=== PATIENT | female | born 1980 | race Caucasian/White ===

== ENCOUNTER 2017-01-13 19:42 | Emergency (ER) | payer OTHER ==
[2017-01-13 19:58] VITALS: BP 135/65; PULSE 73; TEMP 98.2; BMI 36.6
[2017-01-13 20:11] LABS: URINE APPEARANCE CLEAR; URINE BILIRUBIN NEGATIVE (NEGATIVE); URINE BLOOD NEGATIVE (NEGATIVE); URINE COLOR LTYELLOW; URINE GLUCOSE (UA) NEGATIVE (NEGATIVE); URINE KETONE NEGATIVE (NEGATIVE); URINE LEUK ESTERASE NEGATIVE (NEGATIVE); URINE NITRITE NEGATIVE (NEGATIVE); URINE UROBILINOGEN NEGATIVE E.U./dl (0.2-1.0)
[2017-01-13 20:17] LABS: URINE PROTEIN 1+ (NEGATIVE)
[2017-01-13 20:20] LABS: URINE MUCUS RARE; URINE RBC <1 /hpf (0-3); URINE WBC 1 /hpf (3-5)
--- NOTE | 2017-01-13 20:32 | PDOC ---
History of Present Illness <Saurabh Stanton - Last Filed: 01/14/17 01:31> - General History Source: Patient Exam Limitations: No Limitations - History of Present Illness Initial Comments: 01/14/17 01:34 The patient is a 36 year old female with no significant past medical history who presents to the ED with 3 days of fever and sore throat. Patient reports tmax last night of 102. States she developed sore throat 3 days ago and difficulty swallowing secondary to the pain. Patient reports right upper quadrant pain radiating the back with associated nausea for the past week. No vomiting or diarrhea. She also has complaints of headache, suprapubic pain and urgency. No dysuria, hematuria, or frequency. The patient denies chills, cough, SOB, chest pain, and palpitations. Allergies: NKDA Social History: No alcohol, tobacco, or drug use reported. Past Surgical History: None reported PCP: Dr. Samantha Christopher <Noelle Steinberg - Last Filed: 01/14/17 01:35> - General Chief Complaint: Pain, Acute Stated Complaint: ABDOMINAL PAIN Past History - Past Medical History Asthma: No Cancer: No Cardiac Disorders: No Diabetes: Yes (GESTATIONAL DIABETIC - INSULIN) HTN: No Suicide Attempt (Hx): No Seizures: No Thyroid Disease: No - Reproductive History (#): 4 Para: 3 Cervical CA: No Dysfunctional Uterine Bleeding: No Ectopic : No Endometrial CA: No Polycystic Ovaries: No Therapeutic (s) & number: No Tubal Ligation: No Spontaneous : 0 - Immunization History Immunization Up to Date: Yes - Psycho/Social/Smoking Cessation Hx Anxiety: No Suicidal Ideation: No Smoking Status: No Smoking History: Never smoked Have you smoked in the past 12 months: No Number of Cigarettes Smoked Daily: 0 Hx Alcohol Use: No Drug/Substance Use Hx: No Substance Use Type: None Hx Substance Use Treatment: No <Saurabh Stanton - Last Filed: 01/14/17 01:31> <Noelle Steinberg - Last Filed: 01/14/17 01:35> - Past Medical History Allergies/Adverse Reactions: Allergies Allergy/AdvReac Type Severity Reaction Status Date / Time No Known Allergies Allergy Verified 01/13/17 19:53 Home Medications: Ambulatory Orders Ibuprofen 800 mg PO TID PRN #30 tablet 01/14/17 Lidocaine 2% Viscous Oral [Xylocaine 2% Viscous Oral -] 20 ml PO TID PRN #1 ud 01/14/17 Penicillin V Potassium [Pen Vee K -] 250 mg PO QID #28 tablet 01/14/17 Review of Systems - Review of Systems Able to Perform ROS?: Yes Comments:: 01/14/17 01:34 GENERAL/CONSTITUTIONAL: +fever No chills. No weakness. HEAD, EYES, EARS, NOSE AND THROAT: +sore throat, difficulty swallowing No change in vision. No ear pain or discharge. CARDIOVASCULAR: No chest pain or shortness of breath. RESPIRATORY: No cough, wheezing, or hemoptysis. GASTROINTESTINAL: +right upper quadrant pain radiating to the back, nausea, suprapibic pain No vomiting, diarrhea or constipation. GENITOURINARY: +urgency No dysuria, frequency, or change in urination. MUSCULOSKELETAL: No joint or muscle swelling or pain. SKIN: No rash NEUROLOGIC: +headache No vertigo, loss of consciousness, or change in strength/ sensation. ENDOCRINE: No increased thirst. No abnormal weight change. HEMATOLOGIC/LYMPHATIC: No anemia, easy bleeding, or history of blood clots. ALLERGIC/IMMUNOLOGIC: No hives or skin allergy. <Noelle Steinberg - Last Filed: 01/14/17 01:35> *Physical Exam - Vital Signs Last Vital Signs Temp Pulse Resp BP Pulse Ox 98.2 F 73 18 135/65 100 01/13/17 19:57 01/13/17 19:57 01/13/17 19:57 01/13/17 19:57 01/13/17 19:57 <Saurabh Stanton - Last Filed: 01/14/17 01:31> - Vital Signs Last Vital Signs Temp Pulse Resp BP Pulse Ox 98.2 F 73 18 135/65 100 01/13/17 19:57 01/13/17 19:57 01/13/17 19:57 01/13/17 19:57 01/13/17 19:57 - Physical Exam Comments: 01/14/17 01:35 GENERAL: Awake, alert, and fully oriented, in no acute distress HEAD: No signs of trauma EYES: PERRLA, EOMI, sclera anicteric, conjunctiva clear ENT: Auricles normal inspection, hearing grossly normal, nares patent. Oropharynx is erythematous with exudates bilaterally. Moist mucosa NECK: Normal ROM, supple, painful lymphadenopathy, JVD, or masses LUNGS: Breath sounds equal, clear to auscultation bilaterally. No wheezes, and no crackles HEART: Regular rate and rhythm, normal S1 and S2, no murmurs, rubs or gallops ABDOMEN: Soft, mild diffuse tenderness, normoactive bowel sounds. No guarding, no rebound. No masses EXTREMITIES: Normal range of motion, no edema. No clubbing or cyanosis. No cords, erythema, or tenderness NEUROLOGICAL: Cranial nerves II through XII grossly intact. Normal speech, normal gait SKIN: Warm, Dry, normal turgor, no rashes or lesions noted. <Noelle Steinberg - Last Filed: 01/14/17 01:35> ED Treatment Course - LABORATORY CBC & Chemistry Diagram: 01/13/17 20:23 01/13/17 20:23 - ADDITIONAL ORDERS Additional order review: Laboratory Results 01/13/17 19:58 Urine Color Ltyellow Urine Appearance Clear Urine pH 6.0 Ur Specific [place] 1.010 Urine Protein 1+ H Urine Glucose (UA) Negative Urine Ketones Negative Urine Blood Negative Urine Nitrite Negative Urine Bilirubin Negative Urine Urobilinogen Negative Ur Leukocyte Esterase Negative Urine RBC <1 Urine WBC 1 Ur Epithelial Cells Few Urine Mucus Rare Urine HCG, Qual Negative <Saurabh Stanton - Last Filed: 01/14/17 01:31> - LABORATORY CBC & Chemistry Diagram: 01/13/17 20:23 01/13/17 20:23 - ADDITIONAL ORDERS Additional order review: Laboratory Results 01/13/17 01/13/17 20:23 19:58 Sodium 137 Potassium 4.1 Chloride 102 Carbon Dioxide 26 Anion Gap 9 BUN 8 D Creatinine 0.6 D Creat Clearance w eGFR > 60 Random Glucose 71 L Calcium 8.8 Total Bilirubin 0.5 D AST 63 H D ALT 90 H D Alkaline Phosphatase 189 H D Total Protein 8.0 Albumin 4.0 D Lipase 150 Urine Color Ltyellow Urine Appearance Clear Urine pH 6.0 Ur Specific [place] 1.010 Urine Protein 1+ H Urine Glucose (UA) Negative Urine Ketones Negative Urine Blood Negative Urine Nitrite Negative Urine Bilirubin Negative Urine Urobilinogen Negative Ur Leukocyte Esterase Negative Urine RBC <1 Urine WBC 1 Ur Epithelial Cells Few Urine Mucus Rare Urine HCG, Qual Negative 01/13/17 22:42 Influenza Types A,B Antigen (VERENA) - Final Nasopharyngeal Swab - Final 01/13/17 22:42 Group A Strep Rapid Antigen - Final Throat 01/13/17 20:23 RBC 4.03 MCV 91.8 MCHC 33.4 RDW 13.6 MPV 9.6 Neutrophils % 75.1 Lymphocytes % 15.2 D Monocytes % 7.2 Eosinophils % 2.1 Basophils % 0.4 - Medications Given in the ED: ED Medications Discontinued Medications Generic Name Dose Route Start Last Admin Trade Name Fregiuliana PRN Reason Stop Dose Admin Acetaminophen 650 mg 01/13/17 21:25 01/13/17 21:30 Tylenol - PO 01/13/17 21:26 650 mg ONCE ONE Administration Ketorolac Tromethamine 30 mg 01/13/17 23:47 01/13/17 23:52 Toradol Injection - IVPUSH 01/13/17 23:48 30 mg ONCE ONE Administration Lidocaine HCl 20 ml 01/13/17 23:47 01/13/17 23:52 Xylocaine 2% Viscous Oral - MM 01/13/17 23:48 20 ml ONCE ONE Administration Sodium Chloride 1,000 ml 01/13/17 21:25 01/13/17 21:29 Normal Saline - IV 01/13/17 21:26 1,000 ml ONCE ONE Administration <Noelle Steinberg - Last Filed: 01/14/17 01:35> Medical Decision Making - Medical Decision Making 01/14/17 00:34 36yo f with ongoing symptoms suggestive of viral syndrome, however, PE demonstrates mild RUQ abdominal pain and exudates on the tonsils with painful lymphadenopathy. The patient qualifies for imaging of the abd/pelvis; RUQ abdominal is negative and reassuring. She is offered andf refused CT abd/ pelvis. I have discussed this with her and she feels she would rather take a watch and wait approach. This is reasonable at this time. There is a mild elevation of the LFT's which may suggest EBV/infectious mononucleosis. Will send monospot test. She has a negative influenza screen; rapid strep test pending. Will give antibiotics, fluids, encourage follow up closely within the next 24 hours for reevaluation and aggressive hydration and nutrition as tolerated. She will also bne encouraged to refrain fromj activity that would potentially injure the spleen/liver. 01/14/17 00:41 04/21/17 01:12 <Saurabh Stanton - Last Filed: 01/14/17 01:31> *DC/Admit/Observation/Transfer - Discharge Dispostion Admit: No Decision to Admit order Date/Time: 01/14/17 01:08 - Attestations Physician Attestion: 01/14/17 01:10 I, Dr. Saurabh Stanton MD, attest that this document has been prepared under my direction and personally reviewed by me in its entirety. I further attest, that it accurately reflects all work, treatment, procedures and medical decision -making performed by me. <Saurabh Stanton - Last Filed: 01/14/17 01:31> - Attestations Scribe Attestion: 01/14/17 01:35 Documentation prepared by Noelle Steinberg, acting as medical records supervisor for Saurabh Stanton MD, MD <Noelle Steinberg - Last Filed: 01/14/17 01:35> Diagnosis at time of Disposition: Fever and chills, Sore throat Pharyngitis Qualifiers: Pharyngitis/tonsillitis etiology: other specified organisms Qualified Code(s): J02.8 - Acute pharyngitis due to other specified organisms - Discharge Dispostion Disposition: HOME Condition at time of disposition: Good - Prescriptions Prescriptions: Ibuprofen 800 mg PO TID PRN #30 tablet PRN Reason: pain, fever Penicillin V Potassium [Pen Vee K -] 250 mg PO QID #28 tablet Lidocaine 2% Viscous Oral [Xylocaine 2% Viscous Oral -] 20 ml PO TID PRN #1 ud PRN Reason: Pain - Referrals Referrals: Samantha Christopher MD [Primary Care Provider] - - Patient Instructions Printed Discharge Instructions: Mononucleosis, Sore Throat, DI for Abdominal Pain-Adult Additional Instructions: Please follow up with your PMD within the next 48 hours and if there is any change otherwise in symptoms, please return immediately to the ED. At this time it is not entirely clear as to the specific cause of your symptoms; it is possibly related to strep throat or infectious mononucleosis. Please aggressively hydrate, nutrition as tolerated and plenty of rest; please avoid any contact sports or activity.
[2017-01-13] MEDS ORDERED: SODIUM CHLORIDE 0.9% 500 ML INFUS.BAG IV ONE (21:25)
[2017-01-13] MEDS ORDERED: ACETAMINOPHEN 325 MG TABLET (FP) PO ONE (21:25)
[2017-01-13 21:43] LABS: BASOPHIL 0.4 % (0-2.0); EOSINOPHIL 2.1 % (0-4.5); MCH 30.7 pg (25.7-33.7); MCHC 33.4 g/dl (32.0-36.0); MEAN CELL VOLUME 91.8 fl (80-96); MEAN PLT VOLUME 9.6 fl (7.5-11.1); NEUTROPHILS 75.1 % (42.8-82.8); PLATELET COUNT 276 K/MM3 (134-434); RDW 13.6 % (11.6-15.6); WHITE BLOOD COUNT 14.2 K/mm3 (4.0-10.0)
[2017-01-13] MEDS ORDERED: ACETAMINOPHEN 325 MG TABLET (FP) ONE ×2 (22:02→22:08)
[2017-01-13 22:35] LABS: ANION GAP 9 (8-16); BILIRUBIN,TOTAL 0.5 mg/dL (0.2-1.0); CALCIUM 8.8 mg/dL (8.5-10.1); CO2 26 mmol/L (21-32); CREATININE 0.6 mg/dL (0.55-1.02); GLUCOSE,RANDOM 71 mg/dL (74-106); SGOT/AST 63 U/L (15-37); SGPT/ALT 90 U/L (12-78)
[2017-01-13 22:36] LABS: ALK PHOS 189 U/L (45-117)
[2017-01-13] MEDS ORDERED: LIDOCAINE VISCOUS 2% ORAL/TOP 20 ML UNIT-DOSE CUP MM ONE (23:47)
[2017-01-13] MEDS ORDERED: KETOROLAC TROMETHAMINE 30 MG/1 ML VIAL IVPUSH ONE (23:47)
[2017-01-13] MEDS ORDERED: KETOROLAC TROMETHAMINE 30 MG/1 ML VIAL ONE (23:55)
[2017-01-14] MEDS ORDERED: PENICILLIN V POTASSIUM 500 MG TABLET PO ONE (01:31)
== END 2017-01-14 01:27 | disposition home or self-care (01) ==
LOC: JER 19:42 → SUPCPDRO 19:42 → JER 01-14 01:27
PROC: 3E0333Z Introduction of Anti-inflammatory into Peripheral Vein, Percutaneous Approach (ICD-10-PCS; principal; 2017-01-13)
DX: J02.9 Acute pharyngitis, unspecified (principal); R51 Headache
CPT/HCPCS: 36415; 71020-TC; 76705-TC; 80053; 81003; 81015; 83690; 84703; 85025; 86308; 87040; 87070; 87430; 87804; 99284-25

== ENCOUNTER 2018-11-06 20:54 | Emergency (ER) | payer OTHER ==
[2018-11-06 21:05] VITALS: BP 139/81; PULSE 83; TEMP 100; BMI 41.5
[2018-11-06] MEDS ORDERED: METOCLOPRAMIDE HCL INJECTION 10 MG/2 ML VIAL IVPB ONE (21:05)
[2018-11-06] MEDS ORDERED: ACETAMINOPHEN 325 MG TABLET (FP) PO ONE (21:05)
[2018-11-06] MEDS ORDERED: SODIUM CHLORIDE 1,000 ML IV STA (21:05)
--- NOTE | 2018-11-06 21:05 | PDOC ---
Rapid Medical Evaluation Medical Evaluation: Allergies Allergy/AdvReac Type Severity Reaction Status Date / Time No Known Allergies Allergy Verified 01/13/17 19:53 I have performed a brief in-person evaluation of this patient. The patient presents with a chief complaint of: R sided KENDRICK x 2 weeks also with occasional emesis ; took Advil without relief; KENDRICK is constant in nature, noted some blurred vision last week but resolved now Pertinent physical exam findings: In NAD, no focal deficits I have ordered the following: IVF, Tylenol, Reglan, UCG The patient will proceed to the ED for further evaluation. 11/06/18 21:01
[2018-11-07] MEDS ORDERED: METOCLOPRAMIDE HCL INJECTION 10 MG/2 ML VIAL ONE (00:23)
[2018-11-07] MEDS ORDERED: ACETAMINOPHEN 325 MG TABLET (FP) ONE ×2 (00:23→02:12)
--- NOTE | 2018-11-07 01:33 | PDOC ---
*Physical Exam - Vital Signs Last Vital Signs Temp Pulse Resp BP Pulse Ox 100 F H 83 18 139/81 100 11/06/18 21:02 11/06/18 21:02 11/06/18 21:02 11/06/18 21:02 11/06/18 21:02 ED Treatment Course - Medications Given in the ED: ED Medications Discontinued Medications Generic Name Dose Route Start Last Admin Trade Name Kenyon PRN Reason Stop Dose Admin Acetaminophen 975 mg 11/06/18 21:05 11/07/18 01:31 Tylenol - PO 11/06/18 21:06 975 mg ONCE ONE Administration Sodium Chloride 1,000 mls @ 1,000 mls/hr 11/06/18 21:05 11/07/18 01:32 Normal Saline - IV 11/06/18 22:04 1,000 mls/hr ASDIR STA Administration Metoclopramide HCl 10 mg 11/06/18 21:05 11/07/18 01:32 Reglan Injection - IVPB 11/06/18 21:06 10 mg ONCE ONE Administration Medical Decision Making - Medical Decision Making 11/07/18 01:33 Patient seen by the advanced practice provider under my direct supervision. Ancillary testing reviewed as necessary. I agree with plan as outlined by the advanced practice provider. *DC/Admit/Observation/Transfer Diagnosis at time of Disposition: Sinusitis Qualifiers: Sinusitis location: frontal Chronicity: acute Recurrence: not specified as recurrent Qualified Code(s): J01.10 - Acute frontal sinusitis, unspecified - Discharge Dispostion Disposition: HOME Condition at time of disposition: Stable - Prescriptions Prescriptions: Amox-Tr/K Cl [Augmentin - 875Mg Tablet] 1 tab PO BID #14 tablet - Referrals Referrals: Misti Chan MD [Primary Care Provider] - - Patient Instructions Additional Instructions: Rest, drink lots of fluids: Teas, water, soups, Pedialyte Saltwater gargles Steamy showers/seem to face break up mucus Avoid contact with others until fevers and cough resolved Lots of handwashing and good hygiene Continue [id number] medications for symptomatic relief Tylenol or Motrin for fever and pain Augmentin 875mg twice a day until all medications are complete. Followup with private physician in one to 2 days as needed Return to emergency department for worsened symptoms, fevers, dehydration - Post Discharge Activity
--- NOTE | 2018-11-07 01:39 | PDOC ---
History of Present Illness - General Chief Complaint: Headache Stated Complaint: HEADACHES Time Seen by Provider: 11/06/18 21:01 History Source: Patient Exam Limitations: No Limitations - History of Present Illness Initial Comments: 11/07/18 01:36 HISTORY OF PRESENT ILLNESS: 38-year-old woman with denies medical history presents emergency department for evaluation of intermittent headache over the past 2 weeks and 2 days of cough, sore throat and subjective fevers. Patient denies any dizziness or blurry vision. Patient reports having lower back pain which radiates down her right hip into the posterior of her right leg. Patient reports the first week of the headache she was taken Tylenol and Motrin with good relief of symptoms but is been increasingly less and less effective over that time. No recent travel or sick contacts. PAST MEDICAL HISTORY: Denies past medical history SURGICAL HISTORY: Denies ALLERGIES: Bactrim REVIEW OF SYSTEMS General/Constitutional: Subjective fever. Denies chills. Denies weakness, weight change. HEENT: Denies change in vision. Denies ear pain or discharge. Denies sore throat. Cardiovascular: Denies chest pain or shortness of breath. Respiratory: Dry cough. Denies wheezing, or hemoptysis. Gastrointestinal: Denies nausea, vomiting, diarrhea or constipation. Denies rectal bleeding. Genitourinary: Denies dysuria, frequency, or change in urination. Musculoskeletal: Denies joint or muscle swelling or pain. Denies neck pain. (+) lower back pain. Skin and breasts: Denies rash or easy bruising. Neurologic: Global headache. Denies vertigo, loss of consciousness, or loss of sensation. Psychiatric: Denies depression or anxiety. Endocrine: Denies increased thirst. Denies abnormal weight change. Hematologic/Lymphatic: Denies anemia, easy bleeding, or history of blood clots. Allergic/Immunologic: Denies hives or skin allergy. Denies latex allergy. PHYSICAL EXAM General Appearance: Well-appearing, appropriately dressed. No apparent distress , no intoxication. HEENT: EOMI, PERRLA, normal ENT inspection, normal voice, TMs normal. No conjunctival pallor. No photophobia, scleral icterus. Oropharynx mildly erythematous with cobblestoning present in the posterior aspect. TTP over frontal sinuses. Neck: Supple. Trachea midline. No tenderness, rigidity, carotid bruit, stridor , lymphadenopathy, or thyromegaly. Respiratory/Chest: Lungs CTAB. No shortness of breath, chest tenderness, respiratory distress, accessory muscle use. No crackles, rales, rhonchi, stridor , wheezing, dullness Cardiovascular: RRR. S1, S2. No JVD, murmur, bradycardia, tachycardia. Vascular Pulses: Dorsalis-Pedis (R): 2+, Dorsalis-Pedis (L): 2+ Gastrointestinal/Abdominal: Normal bowel sounds. Abdomen soft, non-distended. No tenderness or rebound tenderness. No organomegaly, pulsatile mass, guarding, hernia, hepatomegaly, splenomegaly. Lymphatic: No adenopathy, tenderness. Musculoskeletal/Extremities: Normal inspection. FROM of all extremities, normal capillary refill. Pelvis Stable. No CVA tenderness. No tenderness to extremities, pedal edema, swelling, erythema or deformity. Integumentary: Appropriate color, dry, warm. No cyanosis, erythema, jaundice or rash Neurologic: electrical line mechanic II-XII intact. Fully oriented, alert. Appropriate mood/affect. Motor strength 5/5. No appreciable EOM palsy, facial droop or sensory deficit. -Kernig's and Brudzinski signs. Ambulatory with steady gait. 11/07/18 05:08 Past History - Past Medical History Allergies/Adverse Reactions: Allergies Allergy/AdvReac Type Severity Reaction Status Date / Time sulfamethoxazole Allergy Verified 11/06/18 21:02 [From Bactrim] trimethoprim [From Bactrim] Allergy Verified 11/06/18 21:02 Home Medications: Ambulatory Orders Ibuprofen 800 mg PO TID PRN #30 tablet 01/14/17 Lidocaine 2% Viscous Oral [Xylocaine 2% Viscous Oral -] 20 ml PO TID PRN #1 ud 01/14/17 Penicillin V Potassium [Pen Vee K -] 250 mg PO QID #28 tablet 01/14/17 Amox-Tr/K Cl [Augmentin - 875Mg Tablet] 1 tab PO BID #14 tablet 11/07/18 Asthma: No Cancer: No Cardiac Disorders: No COPD: No Diabetes: Yes (GESTATIONAL DIABETIC - INSULIN) HTN: No Seizures: No Thyroid Disease: No - Reproductive History (#): 4 Para: 3 Cervical CA: No Dysfunctional Uterine Bleeding: No Ectopic : No Endometrial CA: No Polycystic Ovaries: No Therapeutic (s) & number: No Tubal Ligation: No Spontaneous : 0 - Immunization History Immunization Up to Date: Yes - Suicide/Smoking/Psychosocial Hx Smoking Status: No Smoking History: Never smoked Have you smoked in the past 12 months: No Number of Cigarettes Smoked Daily: 0 Hx Alcohol Use: No Drug/Substance Use Hx: No Substance Use Type: None Hx Substance Use Treatment: No *Physical Exam - Vital Signs Last Vital Signs Temp Pulse Resp BP Pulse Ox 100 F H 83 18 139/81 100 11/06/18 21:02 11/06/18 21:02 11/06/18 21:02 11/06/18 21:02 11/06/18 21:02 Moderate Sedation - Procedure Monitoring Vital Signs: Procedure Monitoring Vital Signs Temperature 100 F H 11/06/18 21:02 Pulse Rate 83 11/06/18 21:02 Respiratory Rate 18 11/06/18 21:02 Blood Pressure 139/81 11/06/18 21:02 O2 Sat by Pulse Oximetry (%) 100 11/06/18 21:02 ED Treatment Course - Medications Given in the ED: ED Medications Discontinued Medications Generic Name Dose Route Start Last Admin Trade Name Rangelq PRN Reason Stop Dose Admin Acetaminophen 975 mg 11/06/18 21:05 11/07/18 01:31 Tylenol - PO 11/06/18 21:06 975 mg ONCE ONE Administration Sodium Chloride 1,000 mls @ 1,000 mls/hr 11/06/18 21:05 11/07/18 01:32 Normal Saline - IV 11/06/18 22:04 1,000 mls/hr ASDIR STA Administration Metoclopramide HCl 10 mg 11/06/18 21:05 11/07/18 01:32 Reglan Injection - IVPB 11/06/18 21:06 10 mg ONCE ONE Administration Medical Decision Making - Medical Decision Making 11/07/18 01:37 A/P: 38-year-old woman with headaches lower back pain Urinalysis, urine , urine culture, influenza testing IV fluids, Reglan, Benadryl Reassess 11/07/18 05:08 Influenza testing is negative. After receiving medications patient reports her headache 5/10. I will discharge the patient home with prescription for Augmentin to treat for sinusitis. I discussed the physical exam findings, ancillary test results and final diagnoses with the patient. I answered all of the patient's questions. The patient was satisfied with the care received and felt comfortable with the discharge plan and treatment plan. The patient will call their primary care physician within 24 hours to arrange follow-up and will return to the Emergency Department with any new, persistent or worsening symptoms. *DC/Admit/Observation/Transfer Diagnosis at time of Disposition: Sinusitis Qualifiers: Sinusitis location: frontal Chronicity: acute Recurrence: not specified as recurrent Qualified Code(s): J01.10 - Acute frontal sinusitis, unspecified - Discharge Dispostion Disposition: HOME Condition at time of disposition: Stable Decision to Admit order: No - Prescriptions Prescriptions: Amox-Tr/K Cl [Augmentin - 875Mg Tablet] 1 tab PO BID #14 tablet - Referrals Referrals: Misti Chan MD [Primary Care Provider] - - Patient Instructions Additional Instructions: Rest, drink lots of fluids: Teas, water, soups, Pedialyte Saltwater gargles Steamy showers/seem to face break up mucus Avoid contact with others until fevers and cough resolved Lots of handwashing and good hygiene Continue [id number] medications for symptomatic relief Tylenol or Motrin for fever and pain Augmentin 875mg twice a day until all medications are complete. Followup with private physician in one to 2 days as needed Return to emergency department for worsened symptoms, fevers, dehydration - Post Discharge Activity
[2018-11-07 02:09] LABS: URINE APPEARANCE SLCLOUDY; URINE BILIRUBIN NEGATIVE (<2.0 mg/dL); URINE COLOR YELLOW; URINE GLUCOSE (UA) NEGATIVE (NEGATIVE); URINE KETONE NEGATIVE (NEGATIVE); URINE LEUK ESTERASE NEGATIVE (NEGATIVE); URINE NITRITE NEGATIVE (NEGATIVE); URINE PROTEIN 1+ (NEGATIVE); URINE UROBILINOGEN NEGATIVE mg/dL (0.2-1.0)
[2018-11-07 02:17] LABS: EPI CELLS RARE /HPF (FEW); URINE BACTERIA RARE /hpf (NONE SEEN); URINE MUCUS RARE
[2018-11-07] MEDS ORDERED: KETOROLAC TROMETHAMINE 30 MG/1 ML VIAL IVPUSH ONE (02:40)
[2018-11-07] MEDS ORDERED: KETOROLAC TROMETHAMINE 30 MG/1 ML VIAL ONE (02:53)
== END 2018-11-07 05:13 | disposition home or self-care (01) ==
LOC: JER 20:54
PROC: 3E033GC Introduction of Other Therapeutic Substance into Peripheral Vein, Percutaneous Approach (ICD-10-PCS; principal; 2018-11-06)
PROC: 3E0333Z Introduction of Anti-inflammatory into Peripheral Vein, Percutaneous Approach (ICD-10-PCS; 2018-11-06)
DX: J01.10 Acute frontal sinusitis, unspecified (principal); M54.5 Low back pain; M79.604 Pain in right leg; Z86.32 Personal history of gestational diabetes
CPT/HCPCS: 81003; 81015; 84703; 87086; 87186; 87804; 96374; 96375; 99282-25; J7030

== ENCOUNTER 2019-10-31 19:09 | Emergency (ER) | payer OTHER ==
[2019-10-31 19:34] VITALS: BP 145/64; PULSE 62; TEMP 97.8; BMI 28.7
--- NOTE | 2019-10-31 19:34 | PDOC ---
Rapid Medical Evaluation Time Seen by Provider: 10/31/19 19:30 Medical Evaluation: Allergies Allergy/AdvReac Type Severity Reaction Status Date / Time sulfamethoxazole Allergy Verified 11/06/18 21:02 [From Bactrim] trimethoprim [From Bactrim] Allergy Verified 11/06/18 21:02 10/31/19 19:30 Pt presents for evaluation of hematuria and frequency, and R lower abdominal pain for two days. Exam: Suprapubic discomfort Orders: UA, UC Pt to proceed to the ER for further evaluation Discharge Disposition - Diagnosis Hematuria - Referrals - Patient Instructions - Post Discharge Activity
[2019-10-31 20:06] LABS: EPI CELLS 0.2 /HPF (0-5/HPF); HYALINE CASTS 7 /lpf (0-8); PH,URINE 7.5 (5.0-8.0); URINE APPEARANCE CLOUDY; URINE BACTERIA >9000 /hpf (NEGATIVE); URINE BILIRUBIN NEGATIVE (NEGATIVE); URINE COLOR YELLOW; URINE GLUCOSE (UA) NEGATIVE (NEGATIVE); URINE KETONE TRACE (NEGATIVE); URINE LEUK ESTERASE 2+ (NEGATIVE); URINE NITRITE POSITIVE (NEGATIVE); URINE PROTEIN NEGATIVE (NEGATIVE); URINE WBC 105 /hpf (0-5)
--- NOTE | 2019-10-31 20:21 | PDOC ---
History of Present Illness - General Chief Complaint: Urinary Problem Stated Complaint: HEMATURIA Time Seen by Provider: 10/31/19 19:30 - History of Present Illness Initial Comments: 10/31/19 20:20 39-year-old female with dysuria x3 days no systemic symptom Past History - Past Medical History Allergies/Adverse Reactions: Allergies Allergy/AdvReac Type Severity Reaction Status Date / Time sulfamethoxazole Allergy Verified 10/31/19 19:34 [From Bactrim] trimethoprim [From Bactrim] Allergy Verified 10/31/19 19:34 Home Medications: Ambulatory Orders Ibuprofen 800 mg PO TID PRN #30 tablet 01/14/17 Lidocaine 2% Viscous Oral [Xylocaine 2% Viscous Oral -] 20 ml PO TID PRN #1 ud 01/14/17 Penicillin V Potassium [Pen Vee K -] 250 mg PO QID #28 tablet 01/14/17 Amox-Tr/K Cl [Augmentin - 875Mg Tablet] 1 tab PO BID #14 tablet 11/07/18 levoFLOXacin [Levaquin -] 500 mg PO DAILY #7 tablet 11/10/18 Nitrofurantoin Monohyd/M-Cryst [Macrobid -] 100 mg PO BID #14 capsule 10/31/19 Phenazopyridine HCl [Pyridium] 200 mg PO TID #6 tablet 10/31/19 Asthma: No Cancer: No Cardiac Disorders: No COPD: No Diabetes: Yes (GESTATIONAL DIABETIC - INSULIN) HTN: No Seizures: No Thyroid Disease: No - Surgical History GI Surgery: Yes (GASTRIC SLEEVE 02/2019) - Reproductive History Is Patient Now?: No (#): 4 Para: 3 Cervical CA: No Dysfunctional Uterine Bleeding: No Ectopic : No Endometrial CA: No Polycystic Ovaries: No Therapeutic (s) & number: No Tubal Ligation: No Spontaneous : 0 - Immunization History Immunization Up to Date: Yes - Psycho Social/Smoking Cessation Hx Smoking Status: No Smoking History: Never smoked Have you smoked in the past 12 months: No Number of Cigarettes Smoked Daily: 0 Information on smoking cessation initiated: No Hx Alcohol Use: No Drug/Substance Use Hx: No Substance Use Type: None Hx Substance Use Treatment: No Review of Systems - Review of Systems Constitutional: No: Fever : Yes: Burning, Dysuria, Frequency. No: Discharge *Physical Exam - Vital Signs Last Vital Signs Temp Pulse Resp BP Pulse Ox 97.8 F 62 17 145/64 100 10/31/19 19:30 10/31/19 19:30 10/31/19 19:30 10/31/19 19:30 10/31/19 19:30 - Physical Exam 10/31/19 20:20 GENERAL: The patient is awake, alert, and fully oriented, in no acute distress. HEAD: Normal with no signs of trauma. EYES: sclera anicteric, conjunctiva clear. ABDOMEN: No CVA tender EXTREMITIES: Normal range of motion, no edema. No clubbing or cyanosis. No cords, erythema, or tenderness. NEUROLOGICAL: Cranial nerves II through XII grossly intact. PSYCH: Normal mood, normal affect. SKIN: Warm, Dry, normal turgor, no rashes or lesions noted. ED Treatment Course - ADDITIONAL ORDERS Additional order review: Laboratory Results 10/31/19 19:35 Urine Color Yellow Urine Appearance Cloudy Urine pH 7.5 D Ur Specific [place] 1.014 Urine Protein Negative Urine Glucose (UA) Negative Urine Ketones Trace H Urine Blood Negative Urine Nitrite Positive H Urine Bilirubin Negative Urine Urobilinogen 1.0 Ur Leukocyte Esterase 2+ H Urine WBC (Auto) 105 Urine Casts (Auto) 7 U Epithel Cells (Auto) 0.2 Urine Bacteria (Auto) >9000 Medical Decision Making - Medical Decision Making 10/31/19 20:20 Patient has no concern for . test was canceled after the urine was discarded by the laboratory. Macrobid for UTI Pyridium for symptoms Discharge - Discharge Information Problems reviewed: Yes Clinical Impression/Diagnosis: Hematuria, UTI (urinary tract infection) Condition: Stable Disposition: HOME - Admission No - Additional Discharge Information Prescriptions: Nitrofurantoin Monohyd/M-Cryst [Macrobid -] 100 mg PO BID #14 capsule Phenazopyridine HCl [Pyridium] 200 mg PO TID #6 tablet - Follow up/Referral Referrals: Misti Chan MD [Primary Care Provider] - - Patient Discharge Instructions Additional Instructions: Please start the antibiotics and take them as directed the Pyridium will turn your urine orange. Please follow-up with your primary care physician in 1 to 2 days for further evaluation and treatment options and return to the emergency room should you have further concerns or issues. - Post Discharge Activity
[2019-10-31] MEDS ORDERED: PHENAZOPYRIDINE HCL 100 MG TABLET (FP) PO ONE (20:26)
[2019-10-31] MEDS ORDERED: PHENAZOPYRIDINE HCL 100 MG TABLET (FP) ONE (20:27)
[2019-10-31] MEDS ORDERED: NITROFURANTOIN MACROCRYSTAL 50 MG CAPSULE (FP) ONE (20:28)
[2019-10-31] MEDS ORDERED: NITROFURANTOIN MACROCRYSTAL 50 MG CAPSULE (FP) PO SCH (20:30)
[2019-10-31 21:26] LABS: URINE RBC 10.5 /hpf (0-4)
== END 2019-10-31 20:29 | disposition home or self-care (01) ==
LOC: JERFT 19:09
DX: N39.0 Urinary tract infection, site not specified (principal); R31.9 Hematuria, unspecified; Z86.32 Personal history of gestational diabetes; Z79.4 Long term (current) use of insulin; Z98.84 Bariatric surgery status; Z88.2 Allergy status to sulfonamides
CPT/HCPCS: 81003; 87086; 87186; 99282-25

== ENCOUNTER → 2020-10-22 | Emergency (ER) | payer OTHER ==
[~2020-10-22] MED LIST: ACETAMINOPHEN 500 MG TABLET (FP) PO ONE; FAMOTIDINE 20 MG TABLET ONE
[2020-10-22 14:49] VITALS: BP 146/83; PULSE 79; TEMP 100; BMI 26.4
== END | disposition left against medical advice (07) ==
LOC: JER 14:28
DX: J11.1 Influenza due to unidentified influenza virus with other respiratory manifestations (principal)
CPT/HCPCS: 99284-25

== ENCOUNTER 2021-02-12 20:53 | Inpatient (IN) | payer OTHER ==
[2021-02-12] MEDS ORDERED: ACETAMINOPHEN 1000 MG/100 ML BAG IVPB ONE (21:54)
[2021-02-12] MEDS ORDERED: MAG HYDROX/AL HYDROX/SIMETH 30 ML UNIT-DOSE CUP PO ONE (21:54)
[2021-02-12] MEDS ORDERED: FAMOTIDINE 20 MG/50 ML IVPB 20 MG/50 ML MG IVPB ONE ×2 (21:54→22:35)
[2021-02-12] MEDS ORDERED: ONDANSETRON 4 MG/2 ML VIAL IVPUSH ONE (21:54)
[2021-02-12] MEDS ORDERED: SODIUM CHLORIDE 0.9% 1000 ML INFUS.BAG IV ONE (21:55)
[2021-02-12] MEDS ORDERED: ONDANSETRON 4 MG/2 ML VIAL ONE (22:35)
[2021-02-12] MEDS ORDERED: MAG HYDROX/AL HYDROX/SIMETH 30 ML UNIT-DOSE CUP ONE (22:35)
[2021-02-12] MEDS ORDERED: ACETAMINOPHEN INJECTION 100 ML IVPB ONE (22:35)
[2021-02-12 23:01] LABS: ALBUMIN 3.6 g/dl (3.4-5.0); BILIRUBIN,TOTAL 0.5 mg/dL (0.2-1); BLOOD UREA NITROGEN 12.1 mg/dL (7-18); CALCIUM 8.7 mg/dL (8.5-10.1); CREATININE 0.3 mg/dL (0.55-1.3)
[2021-02-12 23:23] LABS: PH,URINE 5.5 (5.0-8.0); URINE APPEARANCE CLEAR; URINE BILIRUBIN NEGATIVE (NEGATIVE); URINE COLOR YELLOW; URINE GLUCOSE (UA) NEGATIVE (NEGATIVE); URINE KETONE NEGATIVE (NEGATIVE); URINE LEUK ESTERASE NEGATIVE (NEGATIVE); URINE NITRITE NEGATIVE (NEGATIVE); URINE PROTEIN NEGATIVE (NEGATIVE); URINE UROBILINOGEN 0.2 mg/dL (0.2-1.0)
[2021-02-12 23:31] LABS: HEMATOCRIT 29.2 % (32.4-45.2); INR 1.03 (0.83-1.09); LYMPH % 30.3 % (8-40); MCHC 34.4 g/dl (32.0-36.0); MEAN CELL VOLUME 95.8 fl (80-96); MEAN PLT VOLUME 9.8 fl (7.5-11.1); MONO % 7.2 % (3.8-10.2); NEUT % 57.5 % (42.8-82.8); PLATELET COUNT 191 K/MM3 (134-434); PROTHROMBIN TIME (PATIENT) 12.7 SEC (9.7-13.0); RBC 3.04 M/mm3 (3.60-5.2); RDW 12.9 % (11.6-15.6); WHITE BLOOD COUNT 6.7 K/mm3 (4.0-10.0)
[2021-02-12 23:34] LABS: ACTIVATED PTT 30.1 SECONDS (25.2-36.5)
[2021-02-13] MEDS ORDERED: METOCLOPRAMIDE HCL INJECTION 10 MG/2 ML VIAL IVPB ONE (00:42)
[2021-02-13] MEDS ORDERED: METOCLOPRAMIDE HCL INJECTION 10 MG/2 ML VIAL ONE (00:56)
[2021-02-13] MEDS ORDERED: KETOROLAC TROMETHAMINE 15 MG/ML VIAL IVPUSH ONE (01:59)
[2021-02-13] MEDS ORDERED: KETOROLAC TROMETHAMINE 15 MG/ML VIAL ONE (02:19)
[2021-02-13] MEDS ORDERED: ACETAMINOPHEN 1000 MG/100 ML BAG IVPB ONE (09:04)
[2021-02-13] MEDS ORDERED: ACETAMINOPHEN INJECTION 100 ML IVPB ONE (09:04)
[2021-02-13 13:15] VITALS: BMI 22.8
[2021-02-13] MEDS ORDERED: DIVALPROEX NA *ER* EXTEND REL 250 MG TABLET.SA PO ONE (19:19)
[2021-02-13] MEDS: SENNOSIDES 8.6MG TABLET (FP) PO SCH (21:41)
[2021-02-13] MEDS: GABAPENTIN 400 MG CAPSULE PO SCH (21:41)
[2021-02-14] MEDS: GABAPENTIN 400 MG CAPSULE PO SCH ×3 (05:17→22:52)
[2021-02-14 09:29] LABS: BASO % 0.9 % (0-2.0); EOS % 5.5 % (0-4.5); HEMATOCRIT 29.4 % (32.4-45.2); HEMOGLOBIN 10.4 GM/dL (10.7-15.3); LYMPH % 31.8 % (8-40); MCH 33.5 pg (25.7-33.7); MCHC 35.4 g/dl (32.0-36.0); MEAN CELL VOLUME 94.5 fl (80-96); MEAN PLT VOLUME 9.8 fl (7.5-11.1); MONO % 6.5 % (3.8-10.2); NEUT % 55.3 % (42.8-82.8); PLATELET COUNT 174 K/MM3 (134-434); RBC 3.11 M/mm3 (3.60-5.2); RDW 12.7 % (11.6-15.6); WHITE BLOOD COUNT 5.1 K/mm3 (4.0-10.0)
[2021-02-14] MEDS ORDERED: PATIENT'S OWN MEDICATION (NON-FORMULARY) (Calcium Citrate [Calcitrate] 200 MG Tablet) PO SCH (10:00)
[2021-02-14] MEDS ORDERED: GABAPENTIN 400 MG CAPSULE PO SCH (10:00)
[2021-02-14 10:05] LABS: BLOOD UREA NITROGEN 8.8 mg/dL (7-18); CALCIUM 8.8 mg/dL (8.5-10.1)
[2021-02-14 10:08] LABS: CREATININE 0.2 mg/dL (0.55-1.3)
[2021-02-14 10:10] LABS: BILIRUBIN,TOTAL 0.5 mg/dL (0.2-1); TOT PROT 5.8 g/dl (6.4-8.2)
[2021-02-14] MEDS ORDERED: PT OWN MED DRAWER 7, Y5N ONE (10:38)
[2021-02-14] MEDS: ENOXAPARIN NA (PORCINE) 40 MG/0.4 ML DISP.SYRIN SQ SCH (10:42)
[2021-02-14] MEDS: CHOLECALCIFEROL (VIT D3) 1,000 UNIT (25 MCG) TABLET PO SCH (10:42)
[2021-02-14] MEDS: DOCUSATE SODIUM 100 MG CAPSULE (FP) PO SCH (10:42)
[2021-02-14] MEDS: CYANOCOBALAMIN 1,000 MCG TABLET (FP) PO SCH (10:42)
[2021-02-14] MEDS: DIVALPROEX NA *ER* EXTEND REL 250 MG TABLET.SA PO SCH (13:04)
[2021-02-14] MEDS: ACETAMINOPHEN 325 MG TABLET (FP) PO PRN (13:04)
[2021-02-14] MEDS: AMINO ACIDS/PROTEIN HYDROLYS 30 ML LIQUID.PKT PO SCH (17:31)
[2021-02-14] MEDS: MELATONIN 5 MG TABLETS PO SCH (22:52)
[2021-02-14] MEDS: POLYETHYLENE GLYCOL 3350 119 GM BTL PO SCH (22:52)
[2021-02-14] MEDS: SENNOSIDES 8.6MG TABLET (FP) PO SCH (22:52)
[2021-02-15] MEDS: MELATONIN 5 MG TABLETS PO SCH ×2 (00:40→23:20)
[2021-02-15] MEDS: GABAPENTIN 400 MG CAPSULE PO SCH ×3 (06:51→23:20)
[2021-02-15] MEDS: ONDANSETRON 4 MG/2 ML VIAL IVPUSH PRN ×2 (09:28→14:08)
[2021-02-15] MEDS ORDERED: PT OWN MED DRAWER 7, Y5N ONE (10:57)
[2021-02-15] MEDS: CYANOCOBALAMIN 1,000 MCG TABLET (FP) PO SCH (11:03)
[2021-02-15] MEDS: CHOLECALCIFEROL (VIT D3) 1,000 UNIT (25 MCG) TABLET PO SCH (11:03)
[2021-02-15] MEDS: ENOXAPARIN NA (PORCINE) 40 MG/0.4 ML DISP.SYRIN SQ SCH (11:03)
[2021-02-15] MEDS: POLYETHYLENE GLYCOL 3350 119 GM BTL PO SCH ×3 (11:04→23:26)
[2021-02-15] MEDS: AMINO ACIDS/PROTEIN HYDROLYS 30 ML LIQUID.PKT PO SCH ×2 (11:05→17:26)
[2021-02-15] MEDS: DOCUSATE SODIUM 100 MG CAPSULE (FP) PO SCH (11:05)
[2021-02-15] MEDS: DIVALPROEX NA *ER* EXTEND REL 250 MG TABLET.SA PO SCH (11:05)
[2021-02-15] MEDS: SODIUM PHOSPHATE/NA BIPHOS 133 ML ENEMA RC SCH (12:14)
[2021-02-15] MEDS ORDERED: MAG HYDROX/AL HYDROX/SIMETH 30 ML UNIT-DOSE CUP PO PRN (12:21)
[2021-02-15] MEDS ORDERED: BENZOCAINE/MENTH/CETYLPYRD CL 1 EACH LOZENGE MM PRN (12:23)
[2021-02-15] MEDS: PANTOPRAZOLE 40 MG TABLET PO SCH (14:08)
[2021-02-15] MEDS: SENNOSIDES 8.6MG TABLET (FP) PO SCH (23:20)
[2021-02-16] MEDS: ACETAMINOPHEN 325 MG TABLET (FP) PO PRN (01:35)
[2021-02-16] MEDS ORDERED: diphenhydrAMINE HCL 25 MG CAPSULE (FP) PO ONE (06:14)
[2021-02-16] MEDS: GABAPENTIN 400 MG CAPSULE PO SCH ×3 (07:19→22:47)
[2021-02-16] MEDS: AMINO ACIDS/PROTEIN HYDROLYS 30 ML LIQUID.PKT PO SCH ×2 (08:46→18:24)
[2021-02-16] MEDS ORDERED: PT OWN MED DRAWER 7, Y5N ONE ×2 (10:41→10:42)
[2021-02-16] MEDS: DOCUSATE SODIUM 100 MG CAPSULE (FP) PO SCH (10:43)
[2021-02-16] MEDS: CYANOCOBALAMIN 1,000 MCG TABLET (FP) PO SCH (10:44)
[2021-02-16] MEDS: ENOXAPARIN NA (PORCINE) 40 MG/0.4 ML DISP.SYRIN SQ SCH (10:44)
[2021-02-16] MEDS: DIVALPROEX NA *ER* EXTEND REL 250 MG TABLET.SA PO SCH (10:44)
[2021-02-16] MEDS: CHOLECALCIFEROL (VIT D3) 1,000 UNIT (25 MCG) TABLET PO SCH (10:44)
[2021-02-16] MEDS: PANTOPRAZOLE 40 MG TABLET PO SCH (10:44)
[2021-02-16] MEDS: POLYETHYLENE GLYCOL 3350 119 GM BTL PO SCH ×2 (10:44→23:01)
[2021-02-16] MEDS ORDERED: SODIUM PHOSPHATE/NA BIPHOS 133 ML ENEMA RC SCH (11:15)
[2021-02-16] MEDS: SENNOSIDES 8.6MG TABLET (FP) PO SCH (22:47)
[2021-02-16] MEDS: MELATONIN 5 MG TABLETS PO SCH (22:47)
[2021-02-16] MEDS: BACLOFEN 10 MG TABLET (FP) PO SCH (22:47)
[2021-02-17] MEDS: GABAPENTIN 400 MG CAPSULE PO SCH ×3 (07:12→21:44)
[2021-02-17] MEDS: AMINO ACIDS/PROTEIN HYDROLYS 30 ML LIQUID.PKT PO SCH ×2 (08:36→18:26)
[2021-02-17] MEDS: DOCUSATE SODIUM 100 MG CAPSULE (FP) PO SCH ×2 (08:37→09:13)
[2021-02-17] MEDS: PANTOPRAZOLE 40 MG TABLET PO SCH ×2 (08:37→09:13)
[2021-02-17] MEDS: CHOLECALCIFEROL (VIT D3) 1,000 UNIT (25 MCG) TABLET PO SCH ×2 (08:37→09:14)
[2021-02-17] MEDS: ENOXAPARIN NA (PORCINE) 40 MG/0.4 ML DISP.SYRIN SQ SCH ×2 (08:37→09:13)
[2021-02-17] MEDS: BACLOFEN 10 MG TABLET (FP) PO SCH ×3 (08:37→21:44)
[2021-02-17] MEDS: POLYETHYLENE GLYCOL 3350 119 GM BTL PO SCH ×3 (08:39→21:46)
[2021-02-17] MEDS ORDERED: IMMUNE GLOBULIN (IgG-GAMMAKED) 10 GM VIAL IVPB SCH (10:00)
[2021-02-17] MEDS: PRO IMMUN GLOB IVPB SCH (11:45)
[2021-02-17] MEDS: IMMUN GLOB IVPB SCH (11:45)
[2021-02-17] MEDS: PRO IVPB SCH (11:45)
[2021-02-17] MEDS: IGA IVPB SCH (11:45)
[2021-02-17] MEDS: CYANOCOBALAMIN 1,000 MCG TABLET (FP) PO SCH (14:19)
[2021-02-17] MEDS: ACETAMINOPHEN 325 MG TABLET (FP) PO PRN (15:23)
[2021-02-17] MEDS: SENNOSIDES 8.6MG TABLET (FP) PO SCH (21:44)
[2021-02-17] MEDS: MELATONIN 5 MG TABLETS PO SCH (21:44)
[2021-02-18] MEDS: GABAPENTIN 400 MG CAPSULE PO SCH ×3 (05:38→21:43)
[2021-02-18] MEDS: AMINO ACIDS/PROTEIN HYDROLYS 30 ML LIQUID.PKT PO SCH ×2 (08:31→18:45)
[2021-02-18 09:12] LABS: BASO % 0.9 % (0-2.0); HEMATOCRIT 31.9 % (32.4-45.2); LYMPH % 28.6 % (8-40); MCH 33.1 pg (25.7-33.7); MCHC 34.4 g/dl (32.0-36.0); MEAN CELL VOLUME 96.2 fl (80-96); MONO % 7.3 % (3.8-10.2); NEUT % 57.2 % (42.8-82.8); PLATELET COUNT 202 K/MM3 (134-434); RBC 3.31 M/mm3 (3.60-5.2); RDW 13.1 % (11.6-15.6); WHITE BLOOD COUNT 4.6 K/mm3 (4.0-10.0)
[2021-02-18 09:28] LABS: CALCIUM 8.9 mg/dL (8.5-10.1)
[2021-02-18 09:29] LABS: ALBUMIN 3.4 g/dl (3.4-5.0); BLOOD UREA NITROGEN 13.2 mg/dL (7-18)
[2021-02-18 09:32] LABS: CREATININE 0.2 mg/dL (0.55-1.3)
[2021-02-18 09:33] LABS: BILIRUBIN,TOTAL 0.3 mg/dL (0.2-1); TOT PROT 7.2 g/dl (6.4-8.2)
[2021-02-18] MEDS ORDERED: PT OWN MED DRAWER 7, Y5N ONE (09:35)
[2021-02-18] MEDS: POLYETHYLENE GLYCOL 3350 119 GM BTL PO SCH ×2 (09:54→22:03)
[2021-02-18] MEDS: CHOLECALCIFEROL (VIT D3) 1,000 UNIT (25 MCG) TABLET PO SCH (09:55)
[2021-02-18] MEDS: PANTOPRAZOLE 40 MG TABLET PO SCH (09:55)
[2021-02-18] MEDS: CYANOCOBALAMIN 1,000 MCG TABLET (FP) PO SCH (09:55)
[2021-02-18] MEDS: BACLOFEN 10 MG TABLET (FP) PO SCH ×2 (09:55→21:43)
[2021-02-18] MEDS: DOCUSATE SODIUM 100 MG CAPSULE (FP) PO SCH (09:55)
[2021-02-18] MEDS: ENOXAPARIN NA (PORCINE) 40 MG/0.4 ML DISP.SYRIN SQ SCH (09:56)
[2021-02-18] MEDS: ONDANSETRON 4 MG/2 ML VIAL IVPUSH PRN (12:35)
[2021-02-18] MEDS: PRO IMMUN GLOB IVPB SCH (12:45)
[2021-02-18] MEDS: PRO IVPB SCH (12:45)
[2021-02-18] MEDS: IGA IVPB SCH (12:45)
[2021-02-18] MEDS: IMMUN GLOB IVPB SCH (12:45)
[2021-02-18] MEDS: SODIUM PHOSPHATE/NA BIPHOS 133 ML ENEMA RC SCH (16:45)
[2021-02-18] MEDS: SENNOSIDES 8.6MG TABLET (FP) PO SCH (21:43)
[2021-02-18] MEDS: MELATONIN 5 MG TABLETS PO SCH (21:43)
[2021-02-19] MEDS: GABAPENTIN 400 MG CAPSULE PO SCH ×2 (05:55→13:27)
[2021-02-19] MEDS: PANTOPRAZOLE 40 MG TABLET PO SCH (10:00)
[2021-02-19] MEDS: POLYETHYLENE GLYCOL 3350 119 GM BTL PO SCH (10:00)
[2021-02-19] MEDS: AMINO ACIDS/PROTEIN HYDROLYS 30 ML LIQUID.PKT PO SCH ×2 (10:00→18:16)
[2021-02-19] MEDS: DOCUSATE SODIUM 100 MG CAPSULE (FP) PO SCH (10:00)
[2021-02-19] MEDS: CHOLECALCIFEROL (VIT D3) 1,000 UNIT (25 MCG) TABLET PO SCH (10:00)
[2021-02-19] MEDS: BACLOFEN 10 MG TABLET (FP) PO SCH (10:00)
[2021-02-19] MEDS: ENOXAPARIN NA (PORCINE) 40 MG/0.4 ML DISP.SYRIN SQ SCH (10:00)
[2021-02-19] MEDS: CYANOCOBALAMIN 1,000 MCG TABLET (FP) PO SCH (10:02)
[2021-02-19] MEDS: PRO IVPB SCH (10:57)
[2021-02-19] MEDS: PRO IMMUN GLOB IVPB SCH (10:57)
[2021-02-19] MEDS: IGA IVPB SCH (10:57)
[2021-02-19] MEDS: IMMUN GLOB IVPB SCH (10:57)
[2021-02-19 14:41] VITALS: BP 118/64; PULSE 68; TEMP 98.1
[2021-02-19] MEDS: ONDANSETRON 4 MG/2 ML VIAL IVPUSH PRN (15:28)
[2021-02-19 16:10] LABS: EPI CELLS 17 /uL (0-25.1); HYALINE CASTS 1 /uL (0-3.1); PH,URINE 6.5 (5.0-8.0); URINE APPEARANCE CLOUDY; URINE BACTERIA >9,000 /uL (0-1359); URINE BILIRUBIN NEGATIVE (NEGATIVE); URINE COLOR YELLOW; URINE GLUCOSE (UA) NEGATIVE (NEGATIVE); URINE KETONE NEGATIVE (NEGATIVE); URINE LEUK ESTERASE 2+ (NEGATIVE); URINE NITRITE POSITIVE (NEGATIVE); URINE PROTEIN NEGATIVE (NEGATIVE); URINE UROBILINOGEN 0.2 mg/dL (0.2-1.0); URINE WBC 113 /uL (0-25.8)
== END 2021-02-19 18:22 | disposition home or self-care (01) | DRG 49 ==
LOC: JER 20:53 → JERBED 02-13 05:37 → J6S 02-13 12:54
PROVIDERS: ADMIT Internal Medicine; ATTEND Internal Medicine
DX: G61.0 Guillain-Barre syndrome (principal); R10.11 Right upper quadrant pain; G90.1 Familial dysautonomia [Riley-Day]
CPT/HCPCS: 36415; 70450-TC; 71045-TC-FY; 74177-TC; 80053; 81003; 82085; 82550; 83690; 83874; 84443; 84703; 85025; 85610; 85730; 87086; 87186; 93005; 93010; 94010; 97116-GP; 97162-GP; 99285-25; C9803; J0131; J0475; J1459; Q9967; U0003; U0005

== ENCOUNTER 2022-05-27 12:42 | Inpatient (IN) | payer OTHER ==
[2022-05-27 15:06] LABS: BASO % 0.7 % (0-2.0); HEMATOCRIT 37.1 % (32.4-45.2); HEMOGLOBIN 12.6 GM/dL (10.7-15.3); LYMPH % 27.7 % (8-40); MCH 31.2 pg (25.7-33.7); MEAN CELL VOLUME 91.9 fl (80-96); MEAN PLT VOLUME 10.4 fl (7.5-11.1); MONO % 4.8 % (3.8-10.2); NEUT % 63.8 % (42.8-82.8); PLATELET COUNT 216 10^3/uL (134-434); RBC 4.04 M/mm3 (3.60-5.2); RDW 13.9 % (11.6-15.6); WHITE BLOOD COUNT 6.5 K/mm3 (4.0-10.0)
[2022-05-27 15:29] LABS: ALBUMIN 3.9 g/dl (3.4-5.0)
[2022-05-27 15:32] LABS: CREATININE 0.3 mg/dL (0.55-1.3)
[2022-05-27 15:34] LABS: BILIRUBIN,TOTAL 0.4 mg/dL (0.2-1); TOT PROT 7.2 g/dl (6.4-8.2)
[2022-05-27 15:44] LABS: BLOOD UREA NITROGEN 7.9 mg/dL (7-18)
[2022-05-27] MEDS ORDERED: ASPIRIN 81 MG CHEWABLE TABLETS ONE (16:05)
[2022-05-27] MEDS ORDERED: ASPIRIN 81 MG CHEWABLE TABLETS PO ONE (16:10)
[2022-05-27 20:30] LABS: EPI CELLS 6 /uL (0-25.1); HYALINE CASTS 50 /uL (0-3.1); URINE APPEARANCE CLOUDY; URINE BACTERIA 2129 /uL (0-1359); URINE BILIRUBIN NEGATIVE (NEGATIVE); URINE COLOR YELLOW; URINE GLUCOSE (UA) NEGATIVE (NEGATIVE); URINE KETONE NEGATIVE (NEGATIVE); URINE LEUK ESTERASE 2+ (NEGATIVE); URINE NITRITE POSITIVE (NEGATIVE); URINE PROTEIN NEGATIVE (NEGATIVE); URINE RBC 18 /uL (0-23.9); URINE UROBILINOGEN 0.2 mg/dL (0.2-1.0); URINE WBC 328 /uL (0-25.8)
[2022-05-28] MEDS: FAMOTIDINE 20 MG/50 ML IVPB 20 MG/50 ML MG IVPB SCH ×2 (02:33→10:17)
[2022-05-28] MEDS: D5-1/2NS+10 MEQ KCL - 10 MEQ/1,000 ML INFUS.BAG IV SCH ×2 (02:33→21:36)
[2022-05-28 02:42] VITALS: BMI 29.0
[2022-05-28 08:08] LABS: EOS % 3.9 % (0-4.5); HEMATOCRIT 29.5 % (32.4-45.2); HEMOGLOBIN 10.4 GM/dL (10.7-15.3); LYMPH % 24.5 % (8-40); MCH 32.1 pg (25.7-33.7); MCHC 35.3 g/dl (32.0-36.0); MEAN CELL VOLUME 90.8 fl (80-96); MEAN PLT VOLUME 8.7 fl (7.5-11.1); MONO % 5.8 % (3.8-10.2); NEUT % 64.8 % (42.8-82.8); PLATELET COUNT 203 10^3/uL (134-434); RBC 3.25 M/mm3 (3.60-5.2); RDW 13.9 % (11.6-15.6); WHITE BLOOD COUNT 5.9 K/mm3 (4.0-10.0)
[2022-05-28 08:45] LABS: ALBUMIN 3.2 g/dl (3.4-5.0); CALCIUM 8.7 mg/dL (8.5-10.1)
[2022-05-28 08:46] LABS: BLOOD UREA NITROGEN 8.4 mg/dL (7-18)
[2022-05-28 08:49] LABS: CREATININE 0.3 mg/dL (0.55-1.3); TOT PROT 6.2 g/dl (6.4-8.2)
[2022-05-28 08:50] LABS: BILIRUBIN,TOTAL 0.5 mg/dL (0.2-1)
[2022-05-28] MEDS: CEFTRIAXONE 1 GM in DEXTROSE 5%-WATER - 50 ML IVPB SCH (14:38)
[2022-05-28] MEDS: GABAPENTIN 400 MG CAPSULE PO SCH ×2 (14:38→21:31)
[2022-05-28] MEDS: SENNOSIDES 8.6MG TABLET (FP) PO SCH (21:31)
[2022-05-28] MEDS: HEPARIN NA (PORCINE) 5,000 UNITS/ML 1ML VIAL SQ SCH (21:32)
[2022-05-28] MEDS: ARTIFICIAL TEARS (POLYVINYL ALCOHOL) OPTH DROPS OU SCH (21:35)
[2022-05-29] MEDS: D5-1/2NS+10 MEQ KCL - 10 MEQ/1,000 ML INFUS.BAG IV SCH ×2 (04:24→17:21)
[2022-05-29] MEDS ORDERED: ACETAMINOPHEN 325 MG TABLET (FP) PO PRN (06:23)
[2022-05-29] MEDS: ARTIFICIAL TEARS (POLYVINYL ALCOHOL) OPTH DROPS OU SCH ×3 (06:35→21:07)
[2022-05-29] MEDS: GABAPENTIN 400 MG CAPSULE PO SCH ×3 (06:35→21:07)
[2022-05-29] MEDS: HEPARIN NA (PORCINE) 5,000 UNITS/ML 1ML VIAL SQ SCH ×2 (09:29→21:07)
[2022-05-29] MEDS: DOCUSATE SODIUM 100 MG CAPSULE (FP) PO SCH (09:29)
[2022-05-29] MEDS: CALCIUM (OYSTER SHELL) 500 MG TABLET (FP) PO SCH (09:30)
[2022-05-29] MEDS: CEFTRIAXONE 1 GM in DEXTROSE 5%-WATER - 50 ML IVPB SCH (09:30)
[2022-05-29] MEDS: PANTOPRAZOLE 40 MG TABLET PO SCH (09:30)
[2022-05-29] MEDS: SENNOSIDES 8.6MG TABLET (FP) PO SCH (21:07)
[2022-05-30] MEDS: D5-1/2NS+10 MEQ KCL - 10 MEQ/1,000 ML INFUS.BAG IV SCH (04:19)
[2022-05-30] MEDS: ARTIFICIAL TEARS (POLYVINYL ALCOHOL) OPTH DROPS OU SCH (05:32)
[2022-05-30] MEDS: GABAPENTIN 400 MG CAPSULE PO SCH (05:33)
[2022-05-30] MEDS: PANTOPRAZOLE 40 MG TABLET PO SCH (09:29)
[2022-05-30] MEDS: CALCIUM (OYSTER SHELL) 500 MG TABLET (FP) PO SCH (09:29)
[2022-05-30] MEDS: HEPARIN NA (PORCINE) 5,000 UNITS/ML 1ML VIAL SQ SCH (09:29)
[2022-05-30] MEDS: DOCUSATE SODIUM 100 MG CAPSULE (FP) PO SCH (09:30)
[2022-05-30] MEDS: CEFTRIAXONE 1 GM in DEXTROSE 5%-WATER - 50 ML IVPB SCH (09:33)
[2022-05-30 11:02] VITALS: BP 116/62; PULSE 68; RESP 18; TEMP 97.8
== END 2022-05-30 14:00 | disposition home or self-care (01) | DRG 58 ==
LOC: JER 12:42 → JERBED 17:43 → J4S 05-28 02:12
PROVIDERS: ADMIT Internal Medicine; ATTEND Internal Medicine
DX: R47.01 Aphasia (principal); G61.0 Guillain-Barre syndrome; Z98.84 Bariatric surgery status; T41.45XA Adverse effect of unspecified anesthetic, initial encounter; D64.9 Anemia, unspecified; R53.2 Functional quadriplegia; G61.81 Chronic inflammatory demyelinating polyneuritis; H53.2 Diplopia; K59.00 Constipation, unspecified; N39.0 Urinary tract infection, site not specified; R41.82 Altered mental status, unspecified; R10.13 Epigastric pain; R53.1 Weakness
CPT/HCPCS: 36415; 70450-TC; 70551-TC; 80053; 81003; 81025; 82140; 83735; 84443; 84484; 85025; 87086; 87186; 88305-TC; 88342-TC; 93005; 93010; 99285-25; C9803-CS; J1644; U0003; U0005